=== PATIENT | female | born 1960 | race Caucasian/White ===

== ENCOUNTER → 2017-04-03 | Outpatient (CLI) | payer MEDICARE ==
[~2017-04-03] MED LIST: ALBUTEROL17 G1 INH; ALBUTEROL17 GM INH; ALER-CAP25 M1 PO; ATORVASTATIN CA10 MG PO; BACLOFEN10 MG PO; ESCITALOPRAM OX20 MG PO; GABAPENTIN300 M2 PO; HYDROCODONE/APA1 T16 PO; KEPPRA100 MG/ML PO; PAIN & FEVER500 MG PO; PREDNISONE10 MG/DOSE PO; Q-PAP325 MG PO; TRAZODONE PO; VIMPAT100 MG PO; ZANTAC PO
--- NOTE | ~2017-04-03 | BD1 ---
[facility] A Service of [facility] RADIOLOGY TEXT RESULTS PATIENT: FRANCISCA MOTA LOCATION: SRA : 56 UNIT #: [id number] AGE: [address]: Shaylee Ugarte MD SEX: F ORDER DR: [id number] [address] [address] [id number] O MR#: [id number] Acc #: [id number] NAME: FRANCISCA MOTA : 1960 SEX: F STUDY DATE/TIME: 04/03/2017 13:26 UNIT: SRAD ROOM: STUDY DESCRIPTION: Dexa Bone Dens 1+ Site Attending Physician: Shaylee Ugarte M.D. Referring Physician: Shaylee Ugarte M.D. Ordering Physician: Shaylee Ugarte M.D. Primary Care Physician: Shaylee Ugarte M.D. MEDICAL IMAGING REPORT This report is preliminary unless electronic signature is present. EXAM DXA scan 04/03/2017 HISTORY Status post menopause with no hormone replacement therapy. Osteopenia. Arthritis. Smoking history for 34 years. FINDINGS Bone mineral density in the lumbar spine from L1-L4 is 0.846 g/cm2 which is 2.8 standard deviations below the mean when compared to the young adult reference population which is characteristic of osteoporosis. This is 1.9 standard deviations below the mean when compared to the age-matched population. Bone mineral density in the left femoral neck was 0.794 g/cm2 which is 1.8 standard deviations below the mean when compared to the young adult reference population which is characteristic of osteopenia. This is 0.7 standard deviations below the mean when compared to the age-matched population. Bone mineral density in the right femoral neck was 0.718 g/cm2 which is 2.3 standard deviations below the mean when compared to the young adult reference population which is characteristic of osteopenia. This is 1.3 standard deviations below the mean when compared to the age-matched population. IMPRESSION Bone mineral density in the lumbar spine characteristic of osteoporosis and within the hips bilaterally characteristic of osteopenia. Dictated by... Perry Flores M.D. THIS IS AN ELECTRONICALLY VERIFIED REPORT [facility] A Service of [facility] RADIOLOGY TEXT RESULTS PATIENT: FRANCISCA MOTA LOCATION: [facility] : 56 UNIT #: [id number] AGE: [address]: Shaylee Ugarte MD SEX: F ORDER DR: Perry Flores M.D. at 04/06/2017 12:47 PM KRT/pcl TD: 04/03/2017 20:18 JOB #: [id number] MEDICAL IMAGING REPORT Page 1 of 1
== END | disposition home or self-care (01) ==
LOC: SRAD 13:13
DX: M81.0 Age-related osteoporosis without current pathological fracture (principal); Z78.0 Asymptomatic menopausal state
CPT/HCPCS: 77080

== ENCOUNTER → 2017-04-08 | Outpatient (CLI) | payer MEDICARE ==
--- NOTE | ~2017-04-08 | HM ---
Unit #: [id number] #: [id number] Patient: FRANCISCA MOTA [id number] [address] [address] [id number] O MR#: [id number] NAME: FRANCISCA MOTA : 1960 SEX: F STUDY DATE/TIME: 04/19/2017 UNIT: CEKG ROOM: STUDY DESCRIPTION: Attending Physician: Shaylee Ugarte M.D. Referring Physician: Shaylee Ugarte M.D. Primary Care Physician: Shaylee Ugarte M.D. CARDIOLOGY REPORT EXAM 24-hour holter report DATE APPLIED 04/08/2017 DATE SCANNED 04/16/[address] Shaylee Ugarte READ BY Dr. Michelle Squires REASON FOR STUDY Palpitations. FINDINGS Underlying rhythm is normal sinus rhythm with an average heart rate of 75 beats per minute, minimum heart rate of 59 beats per minute, and a maximum heart rate of 133 beats per minute. The minimum heart rate of 59 beats per minute is noted at 2:53 a.m. The maximum heart rate of 133 beats per minute is noted at 10:34 a.m. The patient had a 1.26 second pause noted at 0:44 a.m. The patient had 4 premature ventricular complex and 77 premature atrial complex noted. The patient did not record any symptoms. CONCLUSION 1. Underlying rhythm is normal sinus rhythm with an average heart rate of 75 beats per minute, minimum heart rate of 59 beats per minute, and a maximum heart rate of 133 beats per minute. 2. No sustained atrial or ventricular arrhythmias noted. 3. No significant pauses noted. 4. Extremely rare single premature atrial complex and single premature ventricular complex noted. 5. Normal 24-hour holter report. Dictated by... Amy Springer/israel Unit #: [id number] #: [id number] Patient: FRANCISCA MOTA TD: 04/19/2017 15:15 JOB #: [id number] CARDIOLOGY REPORT Page 1 of 1 X Michelle Squires MD <ELECTRONICALLY SIGNED> 05/23/17 [id number] HOLTER MONITOR REPORT
== END | disposition home or self-care (01) ==
LOC: CEKG 09:00
DX: R00.2 Palpitations (principal)
CPT/HCPCS: 93225; 93226

== ENCOUNTER → 2017-05-01 | Outpatient (CLI) | payer MEDICARE ==
--- NOTE | ~2017-05-01 | MR113 ---
[facility] A Service of [facility] RADIOLOGY TEXT RESULTS PATIENT: FRANCISCA MOTA LOCATION: [facility] : 56 UNIT #: [id number] AGE: [address]: Shaylee Ugarte MD SEX: F ORDER DR: [id number] [address] [address] [id number] O MR#: [id number] Acc #: [id number] NAME: FRANCISCA MOTA : 1960 SEX: F STUDY DATE/TIME: 05/01/2017 15:30 UNIT: [facility] ROOM: STUDY DESCRIPTION: MR Lumbar Wo Contrast Attending Physician: Shaylee Ugarte M.D. Referring Physician: Shaylee Ugarte M.D. Ordering Physician: Shaylee Ugarte M.D. Primary Care Physician: Shaylee Ugarte M.D. MRI CENTER REPORT This report is preliminary unless electronic signature is present. EXAM Lumbar spine MRI without contrast 05/01/[address] abdomen and pelvis 09/29/2015 PROCEDURE Routine unenhanced lumbar spine MRI. CLINICAL HISTORY Chronic low back pain for years with 5-day history of worsened low back pain radiating to right hip. FINDINGS There is a mild lumbar levoscoliosis. There is no milind- or retrolisthesis. Bone marrow signal is normal. The distal cord and conus are normal in position and appearance. The paraspinous tissues are normal. At L1-L2, the disc canal and foramina are normal. At L2-L3, there is a slight disc bulge and no canal stenosis. There is mild left and borderline, if any, right foraminal stenosis. At L3-L4, there is slight disc and endplate change, but no canal stenosis and borderline bilateral foraminal narrowing. At L4-L5, there is minimal disc desiccation and bulge, but no canal stenosis and borderline left and borderline to mild right foraminal stenosis. At L5-S1, the disc, canal, and foramina are normal. IMPRESSION [facility] A Service of [facility] RADIOLOGY TEXT RESULTS PATIENT: FRANCISCA MOAT [id number] : 56 UNIT #: [id number] AGE: [address]: Shaylee Ugarte MD SEX: F ORDER DR: Modest lower lumbar degenerative change. See above for level by level details. Dictated by... Mark Mace M.D. THIS IS AN ELECTRONICALLY VERIFIED REPORT Mark Mace M.D. at 05/04/2017 10:54 AM ANI/iris TD: 05/03/2017 17:09 JOB #: [id number] MRI CENTER REPORT Page 1 of 1
== END | disposition home or self-care (01) ==
LOC: SMRI 14:43
DX: M51.16 Intervertebral disc disorders with radiculopathy, lumbar region (principal)
CPT/HCPCS: 72148

== ENCOUNTER → 2017-05-08 | Outpatient (CLI) | payer MEDICARE ==
--- NOTE | ~2017-05-08 | CT57 ---
[facility] A Service of [facility] RADIOLOGY TEXT RESULTS PATIENT: FRANCISCA MOTA LOCATION: [facility] : 56 UNIT #: [id number] AGE: [address]: Billy Stanton MD SEX: F ORDER DR: [id number] [facility]. [place], [place] [address] [id number] O MR#: [id number] Acc #: [id number] NAME: FRANCISCA MOTA : 1960 SEX: F STUDY DATE/TIME: 05/08/2017 10:29 UNIT: [facility] ROOM: STUDY DESCRIPTION: CT Chest Wo Cont Attending Physician: Billy Stanton M.D. Referring Physician: Billy Stanton M.D. Ordering Physician: Billy Stanton M.D. Primary Care Physician: Shaylee Ugarte M.D. MEDICAL IMAGING REPORT This report is preliminary unless electronic signature is present EXAM Chest CT without contrast. HISTORY Shortness of breath over the past year. Previous smoking history quitting 8 years ago. TECHNIQUE Axial images were obtained through the chest without contrast and evaluated at lung and mediastinal windows. This CT exam was performed with one or more of the following radiation dose reduction techniques: automatic exposure control, adjustment of mA and/or kV according to patient size, and iterative reconstruction. FINDINGS Chest images at mediastinal window show no enlarged mediastinal or hilar lymph nodes. There is no evidence of pleural or pericardial fluid. There is a nonobstructing 8 mm kidney stone on the left. There is mild diffuse fatty infiltration of the liver. Images at lung window show emphysema. No suspicious masses or infiltrates are seen. Mild volume loss is noted in the lingula and right middle lobe. IMPRESSION Emphysema with mild fibrotic changes. Nonobstructing left kidney stone 8 mm in diameter. Dictated by... Baljinder Barclay M.D. THIS IS AN ELECTRONICALLY VERIFIED REPORT Baljinder Barclay M.D. at 05/10/2017 9:58 AM [facility] A Service of [facility] RADIOLOGY TEXT RESULTS PATIENT: FRANCISCA MOTA LOCATION: [facility] #: [id number] : 56 UNIT #: [id number] AGE: [address]: Billy Stanton MD SEX: F ORDER DR: Yanet TD: 05/09/2017 20:51 JOB #: [id number] MEDICAL IMAGING REPORT Page 1 of 1 COPY
--- NOTE | ~2017-05-08 | US11 ---
[facility] A Service of [facility] & [facility] RADIOLOGY TEXT RESULTS PATIENT: FRANCISCA MOTA LOCATION: [facility] : 56 UNIT #: [id number] AGE: [address]: Billy Stanton MD SEX: F ORDER DR: [id number] [facility] [address] [place], [place] [address] [id number] O MR#: [id number] Acc #: [id number] NAME: FRANCISCA MOTA : 1960 SEX: F STUDY DATE/TIME: 05/08/2017 9:47 UNIT: [facility] ROOM: STUDY DESCRIPTION: US Aorta Duplex Complete Attending Physician: Billy Stanton M.D. Referring Physician: Billy Stanton M.D. Ordering Physician: Billy Stanton M.D. Primary Care Physician: Shaylee Ugarte M.D. MEDICAL IMAGING REPORT This report is preliminary unless electronic signature is present EXAM Abdominal aortic ultrasound date of exam 05/08/2017 HISTORY Tobacco abuse, pulsatile abdominal aortic mass. FINDINGS The infrarenal aorta was visualized in B-mode imaging and color duplex imaging as well as the proximal common iliac arteries. The vessel appears to be widely patent with a mid aortic velocity of 54 cm/sec. The proximal infrarenal aorta is 2.4 cm, mid aorta 1.4 cm, and distal aorta 1.0 cm. The right common iliac artery is 0.9 cm and the left is 0.8 cm. IMPRESSION No evidence of infrarenal abdominal aortic aneurysm or iliac artery aneurysm. There is no evidence of aortic stenosis. Dictated by... Jolynn Gee M.D. THIS IS AN ELECTRONICALLY VERIFIED REPORT Jolynn Gee M.D. at 05/11/2017 6:33 AM FPN/mike TD: 05/09/2017 00:23 JOB #: [id number] MEDICAL IMAGING REPORT Page 1 of 1 COPY
== END | disposition home or self-care (01) ==
LOC: CGUS 05-06 08:15
DX: R07.89 Other chest pain (principal); R06.09 Other forms of dyspnea; R06.02 Shortness of breath; R09.89 Other specified symptoms and signs involving the circulatory and respiratory systems; R00.2 Palpitations; J43.9 Emphysema, unspecified; N20.0 Calculus of kidney; Z87.891 Personal history of nicotine dependence
CPT/HCPCS: 71250; 93978

== ENCOUNTER → 2017-06-04 | Outpatient (CLI) | payer MEDICARE ==
--- NOTE | ~2017-06-04 | ST ---
Unit #: [id number] #: [id number] Patient: FRANCISCA MOTA [id number] [address] [address] [id number] O MR#: [id number] NAME: FRANCISCA MOTA : 1960 SEX: F STUDY DATE/TIME: 06/04/2017 UNIT: CNUC ROOM: STUDY DESCRIPTION: Stress Test Attending Physician: Billy Stanton M.D. Referring Physician: Billy Stanton M.D. Primary Care Physician: Shaylee Ugarte M.D. CARDIOLOGY REPORT EXAM Stress ECG RESULTS Result text under Nuclear Study. Please see Nuclear Study for result text. Dictated by... Amy Bowman/kd TD: 06/04/2017 12:39 JOB #: [id number] CARDIOLOGY REPORT Page 1 of 1 X Billy Stanton MD CARDIOLOGY REPORT
--- NOTE | ~2017-06-04 | TH ---
Unit #: [id number] #: [id number] Patient: FRANCISCA MOTA [id number] [address] [address] [id number] O MR#: [id number] NAME: FRANCISCA MOTA : 1960 SEX: F STUDY DATE/TIME: UNIT: [facility] ROOM: STUDY DESCRIPTION: Nuclear Study/Stress ECG Attending Physician: Billy Stanton M.D. Referring Physician: Billy Stanton M.D. Primary Care Physician: Shaylee Ugarte M.D. CARDIOLOGY REPORT EXAM Stress Nuclear and ECG Combined INDICATIONS Palpitations, dyslipidemia, tobacco abuse, inability to exercise, for the diagnosis of obstructive coronary disease contributing to the patient's symptoms. SUMMARY The patient was given Lexiscan intravenously while at rest as well as technetium 99 Cardiolite 11.56 and 32.5 mCi at rest and stress respectively. Appropriate views were obtained. FINDINGS The rest and stress ECG showed no diagnostic ST shifts. The patient did not experience any symptoms. Heart rate increased from 75 to 103, and blood pressure decreased 150/84 to 136/72. There were no dysrhythmias and no heart block noted. Perfusion images demonstrated normal perfusion throughout the myocardium, both at rest and stress. There was intestinal artifact, more obvious during rest than at stress. No significant patient motion is noted at rest or stress. There is no significant lung uptake, LV or RV enlargement. Summed stress score is 0. Gated perfusion wall motion analysis demonstrates normal wall motion throughout the myocardium with end diastolic volume 36 mL, ejection fraction greater than 65%. IMPRESSION 1. Very small ventricle. 2. Normal study with no ischemia or infarction. 3. Normal stress ECG with Lexiscan. 4. No change in therapy or workup based on this study. Dictated by... Amy Bowman/kd Unit #: [id number] #: [id number] Patient: FRANCISCA MOTA TD: 06/04/2017 12:32 JOB #: [id number] CARDIOLOGY REPORT Page 1 of 1 X Billy Stanton MD CARDIOLOGY REPORT
== END | disposition home or self-care (01) ==
LOC: CNUC 08:28
DX: R07.89 Other chest pain (principal); R06.09 Other forms of dyspnea; I50.30 Unspecified diastolic (congestive) heart failure; I36.1 Nonrheumatic tricuspid (valve) insufficiency; Z88.1 Allergy status to other antibiotic agents
CPT/HCPCS: 78452; 93017; 93306; A9500; J2785